=== PATIENT | male | born 1955 | race Caucasian/White ===

== ENCOUNTER 2018-07-10 08:30 | Day surgery (SDC) | payer OTHER ==
[~2018-07-10] VITALS: Ht 182.9 cm; Wt 140.6 kg
[~2018-07-10 08:30] MED LIST: ASPIRIN EC81 MG PO; CARVEDILOL3.125 MG PO; CLOPIDOGREL75 MG PO; FAMOTIDINE10 MG PO; GLIPIZIDE XL10 MG PO; LISINOPRIL5 MG; LISINOPRIL5 MG PO; METFORMIN HCL500 MG PO; MOBIC7.5 MG PO; NITROGLYCERIN0.4 MG SL; PERCOCET 5-3251 EACH PO; SIMVASTATIN20 MG PO
[2018-07-10] MEDS ORDERED: NEURONTIN300 MG PO (11:24)
[2018-07-10] MEDS ORDERED: HYDROCODON-ACE1 EA11 PO (11:24)
--- NOTE | 2018-07-10 11:55 | NUR ---
PT'S EBL WAS 25 ML ACCORDING TO BRIANNA GRADY CRNA. 75 ML WAS ACCIDENTLY CHARTED AT FIRST.
--- NOTE | 2018-07-10 12:04 | NUR ---
PT IS BACK TO FROM PACU. HE IS EATING ICE CHIPS UPON HIS ARRIVAL. NO C/O'S PAIN OR NAUSEA AT THIS TIME. ICE THE SURGICAL SITE. CALL LIGHT WITHIN REACH. PT REQUESTING HIS PHONE AND GLASSESS. NO OTHER C/O'S AT THIS TIME. WILL REASSESS.
--- NOTE | 2018-07-10 12:12 | NUR ---
07/10/18 1212 Josie Burris 1125- PT ARRIVES TO PACU NONAROUSABLE TO NOXIOUS STIMULI. BRIANNA GRADY, JENSEN IS PERFORMING A JAW THRUST WITH AN OPA IN PLACE. THIS RN TAKES OVER JAW THRUST. PT'S OXYGEN MASK IS FOGGING WITH EVERY BREATHE. RESP EVEN AND UNLABORED. OXYGEN SAT 100% ON 12L VIA MASK. 1127- ICE PACK PLACED TO PT'S RIGHT KNEE BY SHARON KARIMI. 1129- OXYGEN TURNED DOWN TO 6L VIA MASK. OXYGEN SAT HIGH 90'S TO 100% ON THIS. 1131- PT IS AROUSABLE TO NOXIOUS STIMULI. PT IS ABLE TO OPEN MOUTH AFTER BEING ASKED AND OPA REMOVED. PT PLACED BACK ON 6L VIA MASK. OXYGEN SAT HIGH 90'S TO 100% ON THIS. 1134- OXYGEN TURNED OFF. OXYGEN SAT HIGH 90'S ON RA. PT REPORTS NO PAIN OR NAUSEA.
--- NOTE | 2018-07-10 13:08 | NUR ---
PT IS ASSISTED UP OOB, HE USES ONE CRUTCH TO AMBULATE ACROSS THE KUNZ TO USE THE RESTROOM.
--- NOTE | 2018-07-10 13:12 | NUR ---
PT HAS MET DC CRITERIA AT THIS TIME. HE IS EDUCATED ON HOW BEST TO DRESS HIMSELF.
--- NOTE | 2018-07-10 13:31 | NUR ---
PT GIVEN VERBAL DC INSTRUCTIONS, HE VERBALIZES UNDERSTANDING. HE IS TAKEN OUT TO THE VEHICLE VIA WC, HE IS ABLE TO TRANSFER HIMSELF USINGS HIS CRUTCHES.
--- NOTE | 2018-07-11 07:50 | OR ---
[facility] [address], [place] [address] Signed DATE OF OPERATION: 07/10/2018 SURGEON: Sidney Fraire MD PREOPERATIVE DIAGNOSIS: Medial meniscus tear, right knee. POSTOPERATIVE DIAGNOSIS: Medial meniscus tear, right knee. PROCEDURE PERFORMED: Right knee arthroscopy with partial medial meniscectomy. ANESTHESIA: General. LAST MODEL MAKER: Minda Gill PA-C. Minda was present and critical for positioning, leg holding, and closure. BLOOD LOSS: Minimal. BRIEF HISTORY: Kenyatta is a 63-year-old gentleman with pain and catching in his knee. Nonoperative treatment was not successful in treating his symptoms and he was continued to walk on crutches. Risks and benefits of operative treatment discussed with him. He elected to proceed. DESCRIPTION OF PROCEDURE: Once consent was obtained, he was taken to the operating room. After adequate anesthesia, he was placed on operating table. All downside pressure points were well padded. The left leg was flexed, abducted, and externally rotated on a well-padded leg choi. The right was placed in well-padded proximal thigh tourniquet placed on the leg choi. Portal sites were pre-injected using 0.25% Marcaine with epinephrine under alcohol prep. The leg was then prepped and draped in a standard sterile fashion. Standard inferior lateral and superior lateral portals were made. The scope was introduced in the knee. ARTHROSCOPIC FINDINGS: Electronically Signed By: SIDNEY FRAIRE MD 07/11/18 0750 PATIENT NAME: KENYATTA WILCOX JR OPERATIVE REPORT DATE OF : 57 REPORT #: [id number] PHYSICIAN: SIDNEY FRAIRE MD PCP: GRIFFIN SALAZAR DO REPORT IS CONFIDENTIAL AND NOT TO BE RELEASED WITHOUT AUTHORIZATION [facility] [address], [place] [address] Signed Moderate synovitis was noted primarily in the medial portion of the knee. 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 Medial and lateral gutters were clear. ACL and PCL were intact. Lateral compartment was intact. Medial compartment showed diffuse grade 2 chondromalacia primarily on the femoral side. There was a complex tear of the medial meniscus with a small radial portion and a longitudinal horizontal tear going posteriorly. Standard inferomedial portal was made after localization using a spinal needle. The straight and curved biters were then used to trim the meniscus tear back to a stable rim and this was smoothed using a shaver and all debris was evacuated. The scope was then withdrawn. Portals were closed with 3-0 nylon and dressed with Adaptic, ABD, and David wrap. He was awakened and taken to recovery room in satisfactory condition. All sponge, needle, and instrument counts were correct. Sidney Fraire MD BA/GODFREY /[id number] Copies: ~ Electronically Signed By: SIDNEY FRAIRE MD 07/11/18 0750 PATIENT NAME: KENYATTA WILCOX JR OPERATIVE REPORT DATE OF : 57 REPORT #: [id number] PHYSICIAN: SIDNEY FRAIRE MD PCP: GRIFFIN SALAZAR DO REPORT IS CONFIDENTIAL AND NOT TO BE RELEASED WITHOUT AUTHORIZATION
== END 2018-07-10 13:25 | disposition home or self-care (01) ==
LOC: OPS 08:30 → DS 08:30 → OPS 11:30 → DS 11:30 → OPS 13:25
PROVIDERS: Specialist
PROC: 0SBC4ZZ Excision of Right Knee Joint, Percutaneous Endoscopic Approach (ICD-10-PCS; principal; 2018-07-10 11:30)
DX: S83.231A Complex tear of medial meniscus, current injury, right knee, initial encounter (principal); M94.261 Chondromalacia, right knee; G47.30 Sleep apnea, unspecified; G47.33 Obstructive sleep apnea (adult) (pediatric); E66.01 Morbid (severe) obesity due to excess calories; M54.5 Low back pain; G89.29 Other chronic pain; I25.2 Old myocardial infarction; K21.9 Gastro-esophageal reflux disease without esophagitis; F41.9 Anxiety disorder, unspecified; E11.9 Type 2 diabetes mellitus without complications; Z87.891 Personal history of nicotine dependence; Z99.89 Dependence on other enabling machines and devices; Z79.02 Long term (current) use of antithrombotics/antiplatelets; Z79.899 Other long term (current) drug therapy; Z68.41 Body mass index [BMI] 40.0-44.9, adult; X58.XXXA Exposure to other specified factors, initial encounter
CPT/HCPCS: 01400; J0690; J1100; J1885; J2250; J2405; J2704; J2765; J3010; J7120

== ENCOUNTER 2024-06-07 08:57 | Emergency (ER) | payer OTHER ==
[~2024-06-07] VITALS: Ht 182.9 cm; Wt 115.6 kg
[~2024-06-07 08:57] MED LIST changes: +HYDROCODON-ACE1 EA11 PO; +NEURONTIN300 MG PO
--- OUTSIDE RECORDS SUMMARY | 2024-06-07 09:04 | XMS ---
PreManage Notification: KENYATTA WILCOX Security Rn Case Manager Hospice Events No recent Security Events currently on file CRITERIA MET - [facility] - 2 Visits in 30 Days CARE PROVIDERS GRIFFIN SALAZAR Internal Medicine Current PHONE: Unknown Imelda has no Care Guidelines for this patient. EAdela VISIT COUNT (12 MO.) [address] [place] [address] Vidal Rogers ([facility]) TOTAL 2 NOTE: Visits indicate total known visits. ED/UCC VISIT TRACKING (12 MO.) 06/07/2024 08:58 DAYNA Romero TYPE: Emergency COMPLAINT: - BACK PAIN 06/02/2024 13:32 Vidal ISLAS [place] ([facility]) TYPE: Emergency DIAGNOSES: - Muscle spasm of back - Hip Pain - Other intervertebral disc degeneration, lumbar region with lower extremity pain only INPATIENT VISIT TRACKING (12 MO.) No inpatient visits to display in this time frame [email or web address]
[2024-06-07] MEDS ORDERED: OZEMPIC0.25 MG/02 SQ (09:21)
[2024-06-07] MEDS ORDERED: OMEPRAZOLE20 MG PO (09:21)
[2024-06-07 09:54] LABS: BILIRUBIN, URINE NEGATIVE (negative); BLOOD/HGB, URINE TRACE-I (Negative); KETONE, URINE SMALL (Negative); LEUK ESTERASE, URINE NEGATIVE (negative); NITRITE, URINE NEGATIVE (negative)
[2024-06-07 10:01] LABS: BACTERIA, URINE RARE /hpf (negative); CASTS, URINE NONE SEEN \\lpf; COLLECTION TYPE, URINE CLEAN CATCH; CRYSTALS, URINE CALCIUM OXALATE 1+ (0-1+); EPITHELIAL CELLS, URINE 0 /lpf (0-1+); REFLEX CULTURE, URINE No (No)
[2024-06-07] MEDS ORDERED: ondansetron HCL 4 MG/2 ML VIAL IV ONE (11:15)
[2024-06-07] MEDS ORDERED: MORPHINE SULFATE 4 MG/ML VIAL IV ONE ×2 (11:15→12:15)
[2024-06-07 11:17] LABS: BASOPHILS 0.5 % (0-2); EOSINOPHILS 0.4 % (0-6); HEMATOCRIT 53.7 % (35.0-50.0); HEMOGLOBIN 18.4 g/dL (12.0-18.0); LYMPHOCYTES 12.2 % (24-44); MCH 31.2 (27-36); MCHC 34.2 g/dl (30-36); MCV 91.2 fl (81-99); MONOCYTES 9.2 % (0-12); NEUTROPHILS 77.7 % (39-80); PLATELET COUNT 194 K/uL (140-440); RBC 5.89 M/ul (4.3-5.7); RDW 13.2 (10.5-15.0)
[2024-06-07 11:31] LABS: ALBUMIN 4.1 g/dL (3.4-5.0); ALBUMIN/GLOBULIN RATIO 1.11 (1.1-2.4); ANION GAP 19.1 (7-21); BUN/CREATININE RATIO 38.66 (6.0-28.6); CALCIUM 10.3 mg/dL (8.5-10.1); CREATININE, SERUM 0.75 mg/dL (0.70-1.30); POTASSIUM 4.1 mmol/L (3.5-5.1); PROTEIN, TOTAL 7.8 g/dL (6.4-8.2)
[2024-06-07 12:19] LABS: ERYTHROCYTE SEDIMENTATION RATE 3
[2024-06-07] MEDS ORDERED: HYDROmorphone HCL 1 MG/ML SYR IV PRN (12:45)
[2024-06-07 16:31] VITALS: BP 135/76
== END 2024-06-07 16:31 | disposition short-term general hospital (02) ==
LOC: ED 08:57
PROVIDERS: Emergency Medicine
DX: G83.4 Cauda equina syndrome (principal); E11.9 Type 2 diabetes mellitus without complications; I10 Essential (primary) hypertension; I25.2 Old myocardial infarction; K21.9 Gastro-esophageal reflux disease without esophagitis; Z87.891 Personal history of nicotine dependence; Z79.84 Long term (current) use of oral hypoglycemic drugs; Z79.899 Other long term (current) drug therapy; Z79.02 Long term (current) use of antithrombotics/antiplatelets; Z88.6 Allergy status to analgesic agent; Z88.8 Allergy status to other drugs, medicaments and biological substances
CPT/HCPCS: 36415; 72146; 72148; 80053; 81001; 85025; 85651; 86140; 96374; 96375; 96376; 99285-25; J1171; J2270; J2405

== ENCOUNTER 2025-03-28 07:23 | Day surgery (SDC) | payer MEDICARE, OTHER ==
[~2025-03-28] VITALS: Ht 182.9 cm; Wt 144.0 kg
[~2025-03-28 07:23] MED LIST changes: +EFFEXOR XR75 MG PO; +FLOMAX0.4 MG PO; +IBLOOD GLUCOSE TEST STRIP 1 EA TEST VI PRN; +LACTATED RINGER'S 1,000 ML IV SCH; +LIDOCAINE HCL 1% 5 ML SDV INJ ONE; +LYRICA150 MG PO; +OMEPRAZOLE20 MG PO; +OZEMPIC0.25 MG/02 SQ
--- NOTE | 2025-03-28 07:46 | NUR ---
PT NOT AVAILABLE FOR VISIT. PROVIDED PRAYER.
[2025-03-28 07:50] VITALS: BP 122/59
[2025-03-28] MEDS ORDERED: LIDOCAINE HCL 2% 5 ML SDV ONE (08:37)
[2025-03-28 09:41] VITALS: BP 131/72
[2025-03-28] MEDS ORDERED: DEXAMETHASONE SOD PHOS 4 MG/ML VIAL ONE ×2 (10:04)
[2025-03-28] MEDS ORDERED: LACTATED RINGER'S 1,000 ML IV ONE (10:49)
--- NOTE | 2025-03-28 18:03 | NUR ---
03/28/25 1803 Antionette Douglas 0916 PT ARRIVED TO PACU ON 6L VIA MASK, PT ASLEEP AND RESP EVEN AND UNLABORED. VSS. 0922 PT WAKES AND IS REORIENTED TO PACU. PT ENCOURAGED TO PASS GAS. O2 REMOVED AND PT ROLLED TO HIS BACK. 0925 MD AT BEDSIDE TALKING TO PT. 0935 PT SIPPING WATER AND HOB INCREASED.
--- NOTE | 2025-04-01 12:34 | PATH ---
[facility] [address] [facility] [place] [address] Signed SPECIMEN(S): A DISTAL TRANSVERSE COLON POLYP SPECIMEN SOURCE: A. DISTAL TRANSVERSE COLON POLYP CLINICAL HISTORY: Screening, blood in stool FINAL PATHOLOGIC DIAGNOSIS: Distal transverse colon polyp: - Tubular adenoma (two fragments). JVR:clv MICROSCOPIC EXAMINATION: Histologic sections of all submitted blocks are examined by light microscopy. These findings, together with the gross examination, support the pathologic diagnosis. GROSS DESCRIPTION: The specimen, labeled and designated "Trey, distal transverse colon polyp," is received in formalin and consists of four becker soft tissue fragments, ranging from 0.1-0.3 cm. Entirely submitted in (A1). VB (under the direct supervision of a pathologist) The Gross Description was prepared using a voice recognition system. The report was reviewed for accuracy; however, sound-alike word errors, addition and/or deletions may occur. If there is any question about this report, please contact Client Services. PERFORMING LABORATORY: Technical component was performed by [employer], [address] [place] [id number] (CLIA# [id number]). Professional interpretation was performed by [facility], [address] [place] [id number] (CLIA#: [id number]). Diagnostician: Mack Lowe MD Pathologist Electronically Signed 04/01/2025 Copies: PATIENT NAME: KENYATTA WILCOX PATHOLOGY DATE OF : 57 REPORT #: [id number] PHYSICIAN: [facility] PCP: GRIFFIN SALAZAR DO REPORT IS CONFIDENTIAL AND NOT TO BE RELEASED WITHOUT AUTHORIZATION [address] [address] Signed ~ PATIENT NAME: KENYATTA WILCOX [facility] DATE OF : 57 REPORT #: [id number] PHYSICIAN: [facility] PCP: GRIFFIN SALAZAR DO REPORT IS CONFIDENTIAL AND NOT TO BE RELEASED WITHOUT AUTHORIZATION
== END 2025-03-28 09:55 | disposition home or self-care (01) ==
LOC: OPS 07:23 → DS 07:23 → OPS 09:00 → DS 09:00 → OPS 09:50
PROVIDERS: ATTEND Surgery
PROC: 0DBL8ZX Excision of Transverse Colon, Via Natural or Artificial Opening Endoscopic, Diagnostic (ICD-10-PCS; principal; 2025-03-28 09:50)
DX: D12.3 Benign neoplasm of transverse colon (principal); K64.0 First degree hemorrhoids; Z86.0100 Personal history of colon polyps, unspecified; Z80.0 Family history of malignant neoplasm of digestive organs; I25.10 Atherosclerotic heart disease of native coronary artery without angina pectoris; E11.9 Type 2 diabetes mellitus without complications; E78.00 Pure hypercholesterolemia, unspecified; G47.30 Sleep apnea, unspecified; Z79.84 Long term (current) use of oral hypoglycemic drugs; Z88.8 Allergy status to other drugs, medicaments and biological substances; Z87.891 Personal history of nicotine dependence
CPT/HCPCS: 00812; 71046; J1100; J2003; J2704; J7121